=== PATIENT | female | born 1985 | race Caucasian/White ===

== ENCOUNTER 2016-09-20 20:43 | Outpatient (CLI) | payer MEDICAID ==
[~2016-09-20] VITALS: Ht 167.6 cm; Wt 77.2 kg
[2016-09-20] MEDS ORDERED: PREN1TAB79 PO (21:01)
[2016-09-20] MEDS ORDERED: CALC600T5 PO (21:01)
[2016-09-20] MEDS ORDERED: FERR325C PO (21:01)
[2016-09-20 21:02] VITALS: BP 106/64; PULSE 68; RESP 18; Ht 167.6 cm; Wt 77.2 kg
--- NOTE | 2016-09-20 22:40 | RADRPT ---
PROCEDURE: CERVICAL LENGTH ULTRASOUND CLINICAL INDICATION: labor at 23 weeks gestational age. TECHNIQUE: Trans-vaginal imaging of the cervical canal was performed utilizing bacon-scale imaging. Sagittal and transverse images were obtained. Trans-abdominal images were also obtained. The vern ges were reviewed on a PACS workstation. COMPARISON: None. FINDINGS: There is a single live intrauterine . heart rate is 157 beats per minute. Position is breech/variable and placenta is anterior grade 1. There is no placenta previa. The cervix is closed with a length of 5.1 cm. IMPRESSION: 1. Cervical length is 5.1 cm. RPTAT: QQ .Lucho Goodwin MD, MD Date Time Electronically viewed and signed by .Lucho Goodwin MD, on 09/20/2016 22:40 .R/
[2016-09-20 23:31] LABS: ADD SCAN DIFF NO
[2016-09-20 23:32] LABS: BASOPHILS % 0.2 % (0.0-2.0); EOSINOPHILS # 0.3 10^3/ul (0.0-0.5); EOSINOPHILS % 3.3 % (0.0-7.0); HEMATOCRIT 29.4 % (37.0-47.0); HEMOGLOBIN 9.8 g/dl (12.0-16.0); LYMPHOCYTES % 29.4 % (15.0-51.0); MEAN CORPUSCULAR HGB CONC 33.3 g/dl (32.0-37.0); MEAN PLATELET VOLUME 10.9 fl (7.4-10.4); MONOCYTES % 9.6 % (0.0-11.0); NEUTROPHIL # 5.7 10^3/ul (1.6-7.5); NEUTROPHILS % 56.5 % (39.0-77.0); PLATELET COUNT 227 10^3/UL (140-415); RED BLOOD COUNT 3.16 10^6/ul (4.20-5.40); RED CELL DISTRIBUTION WIDTH 14.2 % (11.5-14.5)
[2016-09-20 23:50] LABS: ADD UMIC YES; URINE BILIRUBIN (Dip) NEGATIVE (NEGATIVE); URINE BLOOD (Dip) NEGATIVE (NEGATIVE); URINE COLOR LT. YELLOW (YELLOW); URINE GLUCOSE (Dip) NEGATIVE (NEGATIVE); URINE KETONES (Dip) NEGATIVE (NEGATIVE); URINE LEUKOCYTE ESTERASE (Dip) 1+ (NEGATIVE); URINE NITRITE (Dip) NEGATIVE (NEGATIVE); URINE TOTAL PROTEIN (Dip) NEGATIVE (NEGATIVE); URINE UROBILINOGEN (Dip) 0.2 E.U./dL (0.1-1.0)
[2016-09-21 00:17] LABS: BACTERIA,URINE MANY; SQUAMOUS EPITHELIAL CELL,UR MODERATE; URINE RBCS 0-2 /HPF (0)
--- NOTE | 2016-09-21 00:44 | PN ---
Date/Time of Note Date/Time of Note DATE: 09/21/16 TIME: 00:39 OB Subjective Subjective Subjective 30 yo P2 @ 23 wks presents w pelvic pain/ press OB Objective Objective Objective VS: 106/64, 68, 18, 98.1 Abdomen- gravid, n/t FHT- pos FH [place]- no ctx Sono- cervical length 5.1cm Abdomen: WNL Membranes: Intact Contractions on Admission: None OB Assessment/Plan Other Assessment: 30 yo P2 @ 23 wks w pelvic pressure - reassuring status Other plan: u/a neg, cl- 5.1 cm, not in PTL, no signs of UTI patient reassured d/c home; f/u w ZAHRA Jimenez MD Sep 21, 2016 00:44
--- NOTE | 2016-09-21 02:34 | TRIAGE ---
OB Triage Datetime Report Generated by CPN: 09/21/2016 02:34 Datetime: 09/21/2016 00:38 Stage of : OB Triage Labor Evaluation Frequency: None noted or palpated Monitor Mode: External Resting Tone [place]: Relaxed Comments: Pt reports positive movt Datetime: 09/21/2016 00:36 Stage of : OB Triage Datetime: 09/21/2016 00:26 Stage of : OB Triage Datetime: 09/21/2016 00:00 Stage of : OB Triage Labor Evaluation Frequency: None noted or palpated Monitor Mode: External Resting Tone [place]: Relaxed Comments: Pt reports positive movt Datetime: 09/20/2016 23:00 Stage of : OB Triage Labor Evaluation Frequency: None noted or palpated Monitor Mode: External Resting Tone [place]: Relaxed Comments: Pt reports positive movt Datetime: 09/20/2016 22:00 Stage of : OB Triage Labor Evaluation Frequency: None noted or palpated Monitor Mode: External Resting Tone [place]: Relaxed Comments: Pt reports positive movt Datetime: 09/20/2016 21:53 Stage of : OB Triage Datetime: 09/20/2016 21:06 Labor Evaluation Frequency: None noted or palpated Monitor Mode: External Resting Tone [place]: Relaxed Monitor Mode: External US Variability: Moderate 6-25 bpm Accelerations: 15X15 Comments: Appropriate for gestational age. EFM removed. Datetime: 09/20/2016 20:54 Stage of : OB Triage Temperature Route: Oral Pain Assessment Pain Scale: 0 Pain Presence: None/Denies Pain Type: N/A Pain Assessment Comments: Denies pain at this time. Says can be up to 9/10. Datetime: 09/20/2016 20:53 Stage of : OB Triage Assessment Type: Triage Maternal Assessment Level of Consciousness: Fully Conscious DTR's/Clonus: DTRs 2+; No Clonus Headache: Denies Blurred Vision: No Respiratory Effort: Unlabored; Regular Rhythm; Equal Expansion Breath Sounds, Left: Clear and Equal Breath Sounds, Right: Clear and Equal Nausea/Vomiting: Denies RUQ Epigastric Pain: Denies Lower Extremities Edema: Bilateral Lower Extremities Degree: 1+ (Annotations: Bilateral variscosities) Upper Extremities Edema: None Degree: None Facial Edema: None Fall Risk Assessment History of Falling: (0) No Secondary Diagnosis: (0) No Ambulatory Aid: (0) Bedrest/Nurse Assist IV Therapy: (0) No Gait: (0) Normal/Bedrest/Immobile Mental Status: (0) Oriented to Own Ability Fall Score: 0 Fall Risk Score Definition: No Risk: No action required Datetime: 09/20/2016 20:52 Monitor Mode: External Contraction Comments: [place] applied Heart Rate FHR Baseline Rate: 145 Monitor Mode: External US Comments: EFM applied Datetime: 09/20/2016 20:50 Time of Arrival: 09/20/2016 20:38 EGA: 23.0 Arrived By: Wheelchair Arrived From: Home Chief Complaint: UCs since Fri, vaginal pressure Movement: Present Contractions: Irregular Time Contractions Began: 09/20/2016 14:00 Contractions: [id number] to hours apart Rupture of Membranes: Denies Vaginal Bleeding: None Vaginal Discharge: Present Recent Sexual Intercouse: Yes Abdominal Trauma: Not Applicable Patient Complaints: Contractions; Cramping; Back Pain Time Provider Notified: 09/20/2016 21:53 Provider Notified: Kavon Initial Plan: Monitor uc's
== END 2016-09-21 00:56 | disposition home or self-care (01) ==
LOC: OBT 20:43 → L-D 20:43 → OBT 09-21 00:56
PROVIDERS: ATTEND Obstetrics & Gynecology
DX: O26.892 Other specified pregnancy related conditions, second trimester (principal); R10.2 Pelvic and perineal pain; Z3A.23 23 weeks gestation of pregnancy
CPT/HCPCS: 76817; 81001; 85025; Z7500; 81003; G0463

== ENCOUNTER 2016-10-24 12:51 | Outpatient (CLI) | payer MEDICAID ==
[~2016-10-24] VITALS: Ht 167.6 cm; Wt 78.0 kg
[~2016-10-24 12:51] MED LIST: CALC600T5 PO; FERR325C PO; PREN1TAB79 PO
[2016-10-24 13:08] VITALS: BP 101/61; PULSE 85; RESP 18; Ht 167.6 cm; Wt 78.0 kg
--- NOTE | 2016-10-24 14:30 | RADRPT ---
PROCEDURE: US Lower extremity Venous. CLINICAL INDICATION: Bilateral lower extremity edema , pain TECHNIQUE: Multiple sonographic images of the bilateral lower extremity deep venous system was obt ained utilizing grayscale, color-flow, compressive sonography and doppler imaging with augmentation. The images were reviewed on a PACS workstation. COMPARISON: None. FINDINGS: There is normal compressibility and flow within the bilateral common femoral, femoral , posterior ti bial and popliteal veins. RPTAT: AA IMPRESSION: No sonographic evidence for deep venous thrombosis. .Mele Jensne MD, MD Date Time Electronically viewed and signed by .Mele Jensen MD, on 10/24/2016 14:29 .S/
--- NOTE | 2016-10-24 15:51 | QN ---
Documentation Comment 30 y/o G 3 P2 here for left leg swelling at 37.6 weeks NST R Doppler study of venous flow of both lower extremities are normal will follow outpatient WILSON ARMANDO MD October 24, 2016 15:51
== END 2016-10-24 16:10 | disposition home or self-care (01) ==
LOC: OBT 12:51 → L-D 12:52 → OBT 16:10
PROVIDERS: ATTEND Obstetrics & Gynecology
DX: O26.893 Other specified pregnancy related conditions, third trimester (principal); M79.89 Other specified soft tissue disorders; Z3A.37 37 weeks gestation of pregnancy
CPT/HCPCS: 93970; Z7500; G0463

== ENCOUNTER 2016-10-30 13:24 | Outpatient (CLI) | payer MEDICAID ==
[~2016-10-30] VITALS: Ht 167.6 cm; Wt 78.6 kg
[2016-10-30 13:29] VITALS: Ht 167.6 cm; Wt 78.6 kg
[2016-10-30 13:30] VITALS: BP 112/66; PULSE 71
[2016-10-30] MEDS ORDERED: LACTATED RINGER'S 1,000 ML IV ONE (14:00)
[2016-10-30] MEDS ORDERED: TERBUTALINE 1 MG/ML INJ SC ONE ×2 (14:00→16:30)
[2016-10-30 14:23] LABS: ADD SCAN DIFF NO
[2016-10-30 14:24] LABS: BASOPHIL # 0.1 10^3/ul (0.0-0.1); BASOPHILS % 0.5 % (0.0-2.0); EOSINOPHILS # 0.2 10^3/ul (0.0-0.5); EOSINOPHILS % 2.3 % (0.0-7.0); HEMATOCRIT 32.8 % (37.0-47.0); HEMOGLOBIN 11.3 g/dl (12.0-16.0); LYMPHOCYTES # 2.2 10^3/ul (0.8-2.9); LYMPHOCYTES % 20.7 % (15.0-51.0); MEAN CORPUSCULAR HEMOGLOBIN 32.4 pg (29.0-33.0); MEAN CORPUSCULAR HGB CONC 34.5 g/dl (32.0-37.0); MEAN PLATELET VOLUME 11.1 fl (7.4-10.4); MONOCYTE # 0.7 10^3/ul (0.3-0.9); MONOCYTES % 6.4 % (0.0-11.0); NEUTROPHIL # 7.2 10^3/ul (1.6-7.5); NEUTROPHILS % 67.9 % (39.0-77.0); PLATELET COUNT 257 10^3/UL (140-415); RED BLOOD COUNT 3.49 10^6/ul (4.20-5.40); RED CELL DISTRIBUTION WIDTH 13.3 % (11.5-14.5); WHITE BLOOD COUNT 10.5 10^3/ul (4.8-10.8)
--- NOTE | 2016-10-30 14:42 | RADRPT ---
PROCEDURE: Limited obstetric ultrasound CLINICAL INDICATION: Pain , labor TECHNIQUE: Multiple transverse and longitudinal grayscale images of the pelvis were obtained miller sabdominally and transvaginally.. COMPARISON: same day FINDINGS: The cervix is closed with a length of 5.4 cm. There is a single viable intrauterine gestation. Cardiac activity is present with 158 beats per min sun. There is a transverse left/variable presentation. The placenta is anterior. There is no evidence for an abruption or placenta previa. There is a normal amount of amniotic fluid with an NAHEED = 15.9 cm. RPTAT: AA IMPRESSION: Cervix length measures 5.4 cm. .Mele Jensen MD, Date Time Electronically viewed and signed by .Mele Jensen MD, MD on 10/30/2016 14:42 .S/
[2016-10-30] MEDS ORDERED: LACTATED RINGER'S 1,000 ML IV SCH (15:00)
[2016-10-30 15:21] LABS: ADD UMIC YES; URINE BILIRUBIN (Dip) NEGATIVE (NEGATIVE); URINE BLOOD (Dip) TRACE (NEGATIVE); URINE COLOR LT. YELLOW (YELLOW); URINE GLUCOSE (Dip) NEGATIVE (NEGATIVE); URINE KETONES (Dip) NEGATIVE (NEGATIVE); URINE LEUKOCYTE ESTERASE (Dip) 1+ (NEGATIVE); URINE NITRITE (Dip) NEGATIVE (NEGATIVE); URINE TOTAL PROTEIN (Dip) NEGATIVE (NEGATIVE); URINE UROBILINOGEN (Dip) 0.2 E.U./dL (0.1-1.0)
[2016-10-30 15:49] LABS: BACTERIA,URINE FEW; SQUAMOUS EPITHELIAL CELL,UR FEW; URINE RBCS 0-2 /HPF ([, 0])
[2016-10-30] MEDS ORDERED: BETAMET NA PHOS/AC(6 MG/ML) 5ML INJ IM ONE (16:30)
[2016-10-30] MEDS ORDERED: NIFEdipine 10 MG CAP PO ONE (18:00)
--- NOTE | 2016-10-30 18:18 | QN ---
Documentation Comment 24 y/o female P2 at 29 weeks C/O onset of U/Cs and vaginal spotting X 1 day Patient has Hx of delivery at 35 weeks PMH , PSH negative On EFM U/C seen Q 4-5 min Cx: closed Cervical length:5.4 cm After IV hydration and SQ terbutaline X 2 patient cosseted U/Cs Sterois given patient was started on PO Nifedipine will place on bed and pelvic rest continue Nifedipine at [facility] refer back next day for second dose of steroids WILSON ARMANDO MD October 30, 2016 18:17
[2016-10-30] MEDS ORDERED: NIFE10CA19 PO (18:38)
--- NOTE | 2016-10-30 18:49 | TRIAGE ---
OB Triage Datetime Report Generated by CPN: 10/30/2016 18:49 Datetime: 10/30/2016 17:32 Vaginal Exam Dilatation (cms): 0.0 Datetime: 10/30/2016 17:30 Stage of : OB Triage Maternal Assessment Level of Consciousness: Fully Conscious Headache: Denies Nausea/Vomiting: Denies RUQ Epigastric Pain: Denies Labor Evaluation Frequency: 0 Monitor Mode: External Resting Tone [place]: Relaxed Monitor Mode: External US FHR Baseline Changes: No Baseline Change Variability: Moderate 6-25 bpm Accelerations: 15X15 Decelerations: None Category: Category I Pain Assessment Pain Scale: PT ASLEEP Pain Presence: Intermittent Pain Type: Cramping; Ache Pain Location: Abdomen; Back Pain Goal: 2 Pain Relief Measures: Comfort Measures Membrane Status: Intact Datetime: 10/30/2016 16:30 Stage of : OB Triage Maternal Assessment Level of Consciousness: Fully Conscious Headache: Denies Nausea/Vomiting: Denies RUQ Epigastric Pain: Denies Labor Evaluation Frequency: 30 min Monitor Mode: External Duration (sec)2399: 50 Quality: Moderate Resting Tone [place]: Relaxed Heart Rate FHR Baseline Rate: 140 Monitor Mode: External US FHR Baseline Changes: No Baseline Change Variability: Moderate 6-25 bpm Accelerations: 15X15 Decelerations: None Category: Category I Pain Assessment Pain Scale: 5 Pain Presence: Intermittent Pain Type: Cramping; Ache Pain Location: Abdomen; Back Pain Goal: 2 Pain Relief Measures: Comfort Measures Datetime: 10/30/2016 15:30 Stage of : OB Triage Maternal Assessment Level of Consciousness: Fully Conscious Headache: Denies Nausea/Vomiting: Denies RUQ Epigastric Pain: Denies Labor Evaluation Frequency: 30 min Monitor Mode: External Duration (sec)2399: 50 Quality: Moderate Resting Tone [place]: Relaxed Heart Rate FHR Baseline Rate: 140 Monitor Mode: External US FHR Baseline Changes: No Baseline Change Variability: Moderate 6-25 bpm Accelerations: 15X15 Decelerations: None Category: Category I Pain Assessment Pain Scale: 5 Pain Presence: Intermittent Pain Type: Cramping; Ache Pain Location: Abdomen; Back Pain Goal: 2 Pain Relief Measures: Comfort Measures Datetime: 10/30/2016 14:30 Stage of : OB Triage Maternal Assessment Level of Consciousness: Fully Conscious Headache: Denies Nausea/Vomiting: Denies RUQ Epigastric Pain: Denies Labor Evaluation Frequency: 2-6 Monitor Mode: External Duration (sec)2399: 50 Quality: Moderate Resting Tone [place]: Relaxed Heart Rate FHR Baseline Rate: 140 Monitor Mode: External US FHR Baseline Changes: No Baseline Change Variability: Moderate 6-25 bpm Accelerations: 15X15 Decelerations: None Category: Category I Pain Assessment Pain Scale: 6 Pain Presence: Intermittent Pain Type: Cramping; Ache Pain Location: Abdomen; Back Pain Goal: 2 Pain Relief Measures: Comfort Measures Datetime: 10/30/2016 13:36 Stage of : OB Triage Assessment Type: Triage Maternal Assessment Level of Consciousness: Fully Conscious DTR's/Clonus: DTRs 2+; No Clonus Headache: Denies Blurred Vision: No Respiratory Effort: Unlabored; Regular Rhythm; Equal Expansion Breath Sounds, Left: Clear and Equal Breath Sounds, Right: Clear and Equal Nausea/Vomiting: Denies RUQ Epigastric Pain: Denies Lower Extremities Edema: Left Lower Extremity Degree: 1+ Upper Extremities Edema: None Facial Edema: None Temperature Route: Oral Fall Risk Assessment History of Falling: (0) No Secondary Diagnosis: (0) No Ambulatory Aid: (0) Bedrest/Nurse Assist IV Therapy: (0) No Gait: (0) Normal/Bedrest/Immobile Mental Status: (0) Oriented to Own Ability Fall Score: 0 Fall Risk Score Definition: No Risk: No action required Labor Evaluation Frequency: X2 Monitor Mode: External Duration (sec)2399: 50 Resting Tone [place]: Relaxed Heart Rate FHR Baseline Rate: 135 Monitor Mode: External US FHR Baseline Changes: No Baseline Change Variability: Moderate 6-25 bpm Accelerations: 15X15 Decelerations: None Category: Category I Pain Assessment Pain Scale: 7 Pain Presence: Intermittent Pain Type: Cramping; Ache Pain Location: Abdomen; Back Pain Goal: 2 Pain Relief Measures: Comfort Measures Datetime: 10/24/2016 16:36 Time of Arrival: 10/30/2016 13:25 EGA: 28.5 Arrived By: Ambulatory Arrived From: Dr. Summers Chief Complaint: UC'S VAG DISCHARGE [place] C/O DECREASED FM X 2 DAYS; PAIN 12/30 Movement: Present Contractions: Regular Contractions: 7 Rupture of Membranes: Unsure Vaginal Discharge: Present Recent Sexual Intercouse: Denies Abdominal Trauma: Not Applicable Patient Complaints: Cramping (Annotations: Data stored by CPN on behalf of user) Time Provider Notified: 10/30/2016 13:45 Provider Notified: Emily (Annotations: Data stored by CPN on behalf of user) Initial Plan: NST MONITOR UC'S CALL MD; NO BLEEDING PRESENTLY; ORDERS DR EMILY; IV HYDRATION/S/Q TERB X1; UA,CBC,CL, VE NAHEED (Annotations: Data stored by [facility] on behalf of user) Datetime: 10/24/2016 15:52 Stage of : OB Triage Datetime: 10/24/2016 15:23 Labor Evaluation Frequency: 0 Monitor Mode: External Resting Tone [place]: Relaxed Heart Rate FHR Baseline Rate: 145 Monitor Mode: External US Variability: Moderate 6-25 bpm Decelerations: None Category: Category I Pain Assessment Pain Scale: 0 Pain Presence: None/Denies Pain Type: N/A Pain Goal: 3 Pain Relief Measures: Comfort Measures Datetime: 10/24/2016 15:12 Stage of : OB Triage Datetime: 10/24/2016 14:45 Stage of : OB Triage Datetime: 10/24/2016 14:07 Labor Evaluation Frequency: 0 Monitor Mode: External Resting Tone [place]: Relaxed Heart Rate FHR Baseline Rate: 145 Monitor Mode: External US Variability: Moderate 6-25 bpm Decelerations: None Category: Category I Pain Assessment Pain Scale: 0 Pain Presence: None/Denies Pain Location: Abdomen Pain Goal: 3 Datetime: 10/24/2016 13:17 Assessment Type: Admission Assessment Maternal Assessment Level of Consciousness: Fully Conscious DTR's/Clonus: DTRs 2+; No Clonus Headache: Denies Blurred Vision: No Respiratory Effort: Unlabored; Regular Rhythm; Equal Expansion Breath Sounds, Left: Clear and Equal Breath Sounds, Right: Clear and Equal Nausea/Vomiting: Denies RUQ Epigastric Pain: Denies Lower Extremities Edema: Left Lower Extremity Degree: 1+ Upper Extremities Edema: None Degree: None Facial Edema: None Fall Risk Assessment History of Falling: (0) No Secondary Diagnosis: (0) No Ambulatory Aid: (0) Bedrest/Nurse Assist IV Therapy: (0) No Gait: (0) Normal/Bedrest/Immobile Mental Status: (0) Oriented to Own Ability Fall Score: 0 Fall Risk Score Definition: No Risk: No action required Datetime: 10/24/2016 13:16 Time of Arrival: 10/24/2016 12:45 EGA: 27.6 Arrived By: Ambulatory Arrived From: Dr. Summers Chief Complaint: r/o dvt Movement: Present Contractions: Denies/Absent Rupture of Membranes: Denies Vaginal Bleeding: None Vaginal Discharge: Denies Recent Sexual Intercouse: Denies Abdominal Trauma: Not Applicable Patient Complaints: Other Time Provider Notified: 10/24/2016 15:12 Provider Notified: EMILY Initial Plan: nst, doppler study of venous flow Datetime: 09/21/2016 00:38 Pain Assessment Pain Scale: 0 Pain Presence: None/Denies Pain Type: N/A Pain Assessment Comments: Denies pain at this time Datetime: 09/20/2016 20:53 Fall Score: 0 Fall Risk Score Definition: No Risk: No action required Datetime: 09/20/2016 20:50 EGA: 23.0
--- NOTE | 2016-10-30 19:13 | TRIAGE ---
OB Triage Datetime Report Generated by CPN: 10/30/2016 19:13 Datetime: 10/30/2016 19:00 Time of Arrival: 10/30/2016 13:17 EGA: 28.5 Arrived By: Ambulatory Arrived From: Office Chief Complaint: PT CAME WITH REFERRAL TO R/O PTL Movement: Present Contractions: Regular Contractions: 7 Vaginal Bleeding: None Vaginal Discharge: Denies Recent Sexual Intercouse: Denies Abdominal Trauma: Not Applicable Patient Complaints: Contractions; Cramping Initial Plan: NST/MONITOR UC'S/ NAHEED/VE/CL;UA AND URINE CULTURE CBC; IV HYDRATION
== END 2016-10-30 19:00 | disposition home or self-care (01) ==
LOC: OBT 13:24 → L-D 13:25 → OBT 19:00
PROVIDERS: ATTEND Obstetrics & Gynecology
DX: O62.9 Abnormality of forces of labor, unspecified (principal); O26.853 Spotting complicating pregnancy, third trimester; O60.03 Preterm labor without delivery, third trimester; Z3A.29 29 weeks gestation of pregnancy
CPT/HCPCS: 76815; 76817; 81001; 85025; 87086; J0702; J3105; J7120; Z7610; 81003

== ENCOUNTER 2016-10-31 16:02 | Outpatient (CLI) | payer MEDICAID ==
[~2016-10-31] VITALS: Ht 167.6 cm; Wt 79.7 kg
[~2016-10-31 16:02] MED LIST changes: +NIFE10CA19 PO
[2016-10-31 16:19] VITALS: Ht 167.6 cm; Wt 79.7 kg
[2016-10-31 16:20] VITALS: BP 105/65; PULSE 74
[2016-10-31] MEDS ORDERED: BETAMET NA PHOS/AC(6 MG/ML) 5ML INJ IM ONE (16:30)
--- NOTE | 2016-10-31 17:14 | QN ---
Documentation Comment here for receiving 2nd dose of steroids: given Om EFM No U/C seen P: F/U as outpatient WILSON RAMANDO MD October 31, 2016 17:14
== END 2016-10-31 17:20 | disposition home or self-care (01) ==
LOC: OBT 16:02 → L-D 16:04 → OBT 17:20
PROVIDERS: ATTEND Obstetrics & Gynecology
DX: Z34.83 Encounter for supervision of other normal pregnancy, third trimester (principal)
CPT/HCPCS: J0702

== ENCOUNTER 2016-12-11 00:26 | Outpatient (CLI) | payer MEDICAID ==
[~2016-12-11] VITALS: Ht 167.6 cm; Wt 81.9 kg
[2016-12-11 01:00] VITALS: BP 107/59; PULSE 75; RESP 18
[2016-12-11 01:45] LABS: ADD UMIC YES; UR BILIRUBIN (Dip) NEGATIVE (NEGATIVE); UR BLOOD (Dip) 1+ (NEGATIVE); UR CLARITY CLEAR (CLEAR); UR COLOR LT. YELLOW (YELLOW); UR GLUCOSE (Dip) NEGATIVE (NEGATIVE); UR KETONES (Dip) NEGATIVE (NEGATIVE); UR LEUKOCYTE ESTERASE (Dip) 1+ (NEGATIVE); UR NITRITE (Dip) NEGATIVE (NEGATIVE); UR TOTAL PROTEIN (Dip) NEGATIVE (NEGATIVE); UR UROBILINOGEN (Dip) 0.2 E.U./dL (0.1-1.0)
[2016-12-11 02:09] LABS: ADD SCAN DIFF NO
[2016-12-11 02:12] LABS: UR BACTERIA OCCASIONAL /HPF (NONE SEEN); UR SQUAMOUS EPITHELIAL CELL OCCASIONAL /HPF (FEW)
[2016-12-11 02:12] LABS: ABNORMAL IP MESSAGE 1; BASOPHIL # 0.1 10^3/ul (0.0-0.1); BASOPHILS % 0.5 % (0.0-2.0); EOSINOPHILS # 0.2 10^3/ul (0.0-0.5); EOSINOPHILS % 1.8 % (0.0-7.0); HEMATOCRIT 30.2 % (37.0-47.0); HEMOGLOBIN 10.4 g/dl (12.0-16.0); LYMPHOCYTES % 25.4 % (15.0-51.0); MEAN CORPUSCULAR HEMOGLOBIN 32.1 pg (29.0-33.0); MEAN CORPUSCULAR HGB CONC 34.4 g/dl (32.0-37.0); MEAN CORPUSCULAR VOLUME 93.2 fl (82.0-101.0); MEAN PLATELET VOLUME 11.1 fl (7.4-10.4); MONOCYTE # 1.1 10^3/ul (0.3-0.9); MONOCYTES % 9.1 % (0.0-11.0); NEUTROPHIL # 6.8 10^3/ul (1.6-7.5); NEUTROPHILS % 57.1 % (39.0-77.0); PLATELET COUNT 213 10^3/UL (140-415); RED BLOOD COUNT 3.24 10^6/ul (4.20-5.40); WHITE BLOOD COUNT 11.9 10^3/ul (4.8-10.8)
--- NOTE | 2016-12-11 02:45 | RADRPT ---
PROCEDURE: Biophysical profile. CLINICAL INDICATION: Pelvic pain. TECHNIQUE: Multiple sonographic images of the pelvis were obtained with transabdominal technique. COMPARISON: 10/30/2016. FINDINGS: There is a single living intrauterine gestation with the fetus in a breech position. The placenta i s anterior in location, grade II. heart tones of 139 beats per minute are identified. There i s normal amniotic fluid volume with an NAHEED of 18.0 cm. breathing movements = 2 Gross body movements = 2 tone = 2 Qualitative AFV = 2 IMPRESSION: Biophysical profile 8 out of 8. .Óscar Larsen MD, Date Time Electronically viewed and signed by .Óscar Larsen MD, on 12/11/2016 02:45 .T/
--- NOTE | 2016-12-11 02:48 | RADRPT ---
PROCEDURE: Obstetrical ultrasound, limited. CLINICAL INDICATION: Pelvic pain. TECHNIQUE: Multiple sonographic images of the pelvis were obtained using transabdominal technique . Images were obtained with bacon scale and color Doppler. The images were reviewed on a PACS works tation. COMPARISON: 10/30/2016. FINDINGS: There is a single living intrauterine gestation with the fetus in a breech presentation. hear t tones of 131 beats per minute are identified. The placenta is anterior in location, grade 2. The re is no evidence of placenta previa or abruption. Measurements were made in order to determine age. The results are as follows: BPD =8.12 cm HC =29.58 cm AC =31.26 cm FL =6.86 cm. Estimated gestational age of approximately 34 weeks and 0 days. The estimated date of delivery is 01/22/2017. The EFW = 2485 +/- 373 grams. Estimated weight percentage equals 44.1%. IMPRESSION: Single viable intrauterine gestation of approximately 34 weeks and 0 days, with an ultrasound DRE of 01/22/2017. .Óscar Larsen MD, MD Date Time Electronically viewed and signed by .Óscar Larsen MD, MD on 12/11/2016 02:47 .T/
--- NOTE | 2016-12-11 05:34 | TRIAGE ---
OB Triage Datetime Report Generated by CPN: 12/11/2016 05:34 Datetime: 12/11/2016 02:40 Monitor Mode: External Quality: Mild Pattern: Normal: <= 5 Contractions in 10 Minutes Resting Tone [place]: Relaxed Heart Rate FHR Baseline Rate: 130 Monitor Mode: External US FHR Baseline Changes: No Baseline Change Variability: Moderate 6-25 bpm Accelerations: 15X15 Decelerations: None Category: Category I Datetime: 12/11/2016 01:48 Vaginal Exam Dilatation (cms): 0.0 Effacement (%): 0 Station: -3 Exam By: ant Vaginal Bleeding: None Pool: Negative Nitrazine: Negative Cervix, Consistency: Moderate Cervix, Position: Posterior Datetime: 12/11/2016 01:05 Stage of : OB Triage Labor Evaluation Frequency: q15 Monitor Mode: External Quality: Mild Pattern: Normal: <= 5 Contractions in 10 Minutes Resting Tone [place]: Relaxed Heart Rate FHR Baseline Rate: 135 Monitor Mode: External US FHR Baseline Changes: No Baseline Change Variability: Moderate 6-25 bpm Accelerations: 15X15 Decelerations: None Category: Category I Datetime: 12/11/2016 00:44 Stage of : OB Triage Maternal Assessment Level of Consciousness: Fully Conscious Headache: Denies Blurred Vision: Yes Respiratory Effort: Unlabored Nausea/Vomiting: Denies RUQ Epigastric Pain: Denies Facial Edema: None Labor Evaluation Frequency: placed Monitor Mode: External Resting Tone [place]: Relaxed Heart Rate FHR Baseline Rate: 135 Monitor Mode: External US Pain Assessment Pain Scale: 4 Pain Presence: Intermittent Pain Type: Cramping Pain Location: Abdomen; Perineum Datetime: 12/11/2016 00:30 Time of Arrival: 12/11/2016 00:18 EGA: 34.5 Arrived By: Wheelchair Arrived From: Home Chief Complaint: w/ hx PTL and PTD w/ c/o pelvic pressure, thin bloody discharge, and DFM sin ce 2200 Movement: Decreased Contractions: Irregular Time Contractions Began: 12/10/2016 22:00 Rupture of Membranes: Unsure Vaginal Bleeding: Scant Vaginal Discharge: Present Recent Sexual Intercouse: Denies Abdominal Trauma: Not Applicable Patient Complaints: Cramping Time Provider Notified: 12/11/2016 01:05 Provider Notified: Dr Rene Initial Plan: BPP,EFW,UA,CBC,ROM Datetime: 10/31/2016 17:08 Stage of : OB Triage Datetime: 10/31/2016 16:20 Stage of : OB Triage Datetime: 10/31/2016 16:15 Stage of : OB Triage Assessment Type: Triage Maternal Assessment Level of Consciousness: Fully Conscious DTR's/Clonus: DTRs 2+; No Clonus Headache: Denies Blurred Vision: No Respiratory Effort: Unlabored; Regular Rhythm; Equal Expansion Breath Sounds, Left: Clear and Equal Breath Sounds, Right: Clear and Equal Nausea/Vomiting: Denies RUQ Epigastric Pain: Denies Facial Edema: None Temperature Route: Axillary Fall Risk Assessment History of Falling: (0) No Secondary Diagnosis: (0) No Ambulatory Aid: (0) Bedrest/Nurse Assist IV Therapy: (0) No Gait: (0) Normal/Bedrest/Immobile Mental Status: (0) Oriented to Own Ability Fall Score: 0 Fall Risk Score Definition: No Risk: No action required Labor Evaluation Frequency: 0 Monitor Mode: External Resting Tone [place]: Relaxed Monitor Mode: External US Variability: Moderate 6-25 bpm Accelerations: 10X10 Decelerations: None Category: Category I Pain Assessment Pain Scale: 0 Pain Presence: None/Denies Pain Type: N/A Pain Goal: 3 Pain Relief Measures: Comfort Measures Datetime: 10/31/2016 16:13 Time of Arrival: 10/31/2016 16:05 EGA: 28.6 Arrived By: Ambulatory Arrived From: Home Chief Complaint: FOLLOW UP BETAMETHASONE, DENIES BLEEDING, LEAKING, RARE UC'S Movement: Present Contractions: Regular Rupture of Membranes: Denies Vaginal Bleeding: None Vaginal Discharge: Denies Recent Sexual Intercouse: Denies Abdominal Trauma: Not Applicable Patient Complaints: None Time Provider Notified: 10/31/2016 16:20 Provider Notified: EMILY Initial Plan: MONITOR, BETAMETHASONE #2 Datetime: 10/30/2016 19:00 EGA: 28.5 Datetime: 10/30/2016 13:36 Fall Score: 0 Fall Risk Score Definition: No Risk: No action required Datetime: 10/24/2016 16:36 EGA: 28.5 Datetime: 10/24/2016 13:17 Fall Score: 0 Fall Risk Score Definition: No Risk: No action required Datetime: 10/24/2016 13:16 EGA: 27.6 Datetime: 09/20/2016 20:53 Fall Score: 0 Fall Risk Score Definition: No Risk: No action required Datetime: 09/20/2016 20:50 EGA: 23.0
--- NOTE | 2016-12-11 09:39 | PN ---
Triage Information Date/Time 12/11/16 0200 Weeks of Gestation 34w5d : 3 Para: 2 Diabetes: none Hypertention: none Additional information mucous bloody discharge with pressure sensation decrease movement has been on procardia for PTL , had Hx of PTB ran out of medication fir one day Objective Vital Signs Date Time Temp Pulse Resp B/P Pulse Ox O2 Delivery O2 Flow Rate FiO2 12/11/16 01:00 98.1 75 18 107/59 Room Air Heart Rate: 140's Heart Rate Comments EFM reactive Contractions: >10 Minutes Apart Exam VE closed long -3 Results/Medications Result Diagram: 12/11/16 0128 Results 24 hrs Laboratory Tests Test 12/11/16 00:30 12/11/16 01:28 12/11/16 01:50 Urine Color LT. YELLOW Urine Clarity CLEAR Urine pH Urine Specific [place] Urine Ketones NEGATIVE Urine Nitrite NEGATIVE Urine Bilirubin NEGATIVE Urine Urobilinogen 0.2 E.U./dL Urine Leukocyte Esterase 1+ H Urine Microscopic RBC 5-10 Urine Microscopic WBC 5-10 Urine Squamous Epithelial Cells OCCASIONAL Urine Bacteria OCCASIONAL Urine Hemoglobin 1+ H Urine Glucose NEGATIVE Urine Total Protein NEGATIVE White Blood Count 11.9 H Red Blood Count 3.24 L Hemoglobin 10.4 L Hematocrit 30.2 L Mean Corpuscular Volume 93.2 Mean Corpuscular Hemoglobin 32.1 Mean Corpuscular Hemoglobin Concent 34.4 Red Cell Distribution Width 13.0 Platelet Count 213 Mean Platelet Volume 11.1 H Neutrophils % 57.1 Lymphocytes % 25.4 Monocytes % 9.1 Eosinophils % 1.8 Basophils % 0.5 Nucleated Red Blood Cells % 0.0 Neutrophils # 6.8 Lymphocytes # 3.0 H Monocytes # 1.1 H Eosinophils # 0.2 Basophils # 0.1 Nucleated Red Blood Cells # 0.0 Membranes Rupture NEGATIVE Medications procardia 20mg q 6hr # 50 Imaging Results BPP 8/8 NAHEED 18 breech presentation Assessment/Plan IUP 34w5d r/o PTL Plan discharge home with procardia RTH prn with routine labor instructions PRASANTH EDUARDO MD Dec 11, 2016 09:36
== END 2016-12-11 03:43 | disposition home or self-care (01) ==
LOC: L-D 00:26 → OBT 00:26
PROVIDERS: ATTEND Obstetrics & Gynecology
DX: O36.8130 Decreased fetal movements, third trimester, not applicable or unspecified (principal); Z3A.34 34 weeks gestation of pregnancy
CPT/HCPCS: 76815; 76818; 81001; 84112; 85025; Z7500; G0463

== ENCOUNTER 2017-01-17 08:30 | Inpatient (IN) | payer MEDICAID ==
[~2017-01-17] VITALS: Ht 167.6 cm; Wt 83.6 kg
[2017-01-17] MEDS ORDERED: LIDOCAINE 1% (MPF) 30 ML INJ INJ PRN (09:30)
[2017-01-17] MEDS ORDERED: METHYLERGONOVINE 0.2 MG INJ IM PRN (09:30)
[2017-01-17] MEDS ORDERED: OXYTOCIN 30 UNITS/LR 500 ML IV SCH ×2 (09:30)
[2017-01-17] MEDS ORDERED: IBUPROFEN 600 MG TAB PO PRN (09:30)
[2017-01-17] MEDS ORDERED: OXYTOCIN 30 UNITS/LR 500 ML IV PRN (09:30)
[2017-01-17] MEDS ORDERED: AMPICILLIN 2 GM/NS (PMX) 100 ML IV ONE (09:30)
[2017-01-17] MEDS ORDERED: MISOPROSTOL 200 MCG TAB PR PRN (09:30)
[2017-01-17] MEDS ORDERED: CARBOPROST 250 MCG INJ IM PRN (09:30)
[2017-01-17] MEDS: LACTATED RINGER'S 1,000 ML IV SCH ×2 (10:46→19:32)
[2017-01-17 10:48] LABS: BASOPHILS % 0.3 % (0.0-2.0); EOSINOPHILS # 0.2 10^3/ul (0.0-0.5); HEMATOCRIT 32.6 % (37.0-47.0); HEMOGLOBIN 11.4 g/dl (12.0-16.0); LYMPHOCYTES # 2.1 10^3/ul (0.8-2.9); LYMPHOCYTES % 23.4 % (15.0-51.0); MEAN CORPUSCULAR HEMOGLOBIN 32.6 pg (29.0-33.0); MEAN CORPUSCULAR VOLUME 93.1 fl (82.0-101.0); MEAN PLATELET VOLUME 11.9 fl (7.4-10.4); MONOCYTE # 0.9 10^3/ul (0.3-0.9); MONOCYTES % 9.7 % (0.0-11.0); NEUTROPHIL # 5.5 10^3/ul (1.6-7.5); NEUTROPHILS % 61.5 % (39.0-77.0); PLATELET COUNT 220 10^3/UL (140-415); RED CELL DISTRIBUTION WIDTH 13.7 % (11.5-14.5); WHITE BLOOD COUNT 8.9 10^3/ul (4.8-10.8)
[2017-01-17 10:52] VITALS: BP 115/71; PULSE 68; RESP 18; Ht 167.6 cm; Wt 83.6 kg
[2017-01-17] MEDS ORDERED: DINOPROSTONE 10 MG VAG SUPP VAG ONE (11:00)
--- NOTE | 2017-01-17 11:07 | RADRPT ---
PROCEDURE: US OB. CLINICAL INDICATION: presentation , pain TECHNIQUE: Transabdominal views of the pelvis are available for review. COMPARISON: 12/11/2016 FINDINGS: There is a single intrauterine gestation in a vertex position. The heart rate is noted at 143 bpm. The placenta is anterior. RPTAT: AA IMPRESSION: presentation is vertex. .Mele Jensen MD, MD Date Time Electronically viewed and signed by .Mele Jensen MD, on 01/17/2017 11:06 .S/
[2017-01-17 11:09] LABS: INR 0.93; PROTIME 12.5 Sec (12.2-14.2)
[2017-01-17 11:10] LABS: PARTIAL THROMBOPLASTIN TIME 28.9 Sec (25.0-35.0)
[2017-01-17] MEDS ORDERED: LACTATED RINGER'S 1,000 ML IV PRN (12:00)
[2017-01-17] MEDS: AMPICILLIN 1 GM/NS (PMX) 50 ML IV SCH ×2 (17:02→22:27)
--- NOTE | 2017-01-17 17:57 | HP ---
Date/Time of Note Date/Time of Note DATE: 01/17/17 TIME: 17:54 OB - History Hx of Present Free Text/Dictation Admitted for elective induction of labor at term Last Menstrual Period: Apr 12, 2016 Estimated Due Date: Jan 15, 2017 : 3 Para: 2 Care: Good Care Ultrasounds: Normal mid trimester US Obstetrical Complications: None Medical Complications: None Past Family/Social History * Past Medical, Surgical, Family and Obstetric Histories reviewed from chart. Blood Type: AB+ Rubella: unknown RPR/VDRL: Negative GBS Status: Positive HBsAG: Negative OB Admission Exam Vital Signs Vital Signs Vital Signs Date Time Temp Pulse Resp B/P Pulse Ox O2 Delivery O2 Flow Rate FiO2 01/17/17 10:52 97.8 68 18 115/71 98 Room Air Physical Exam HEENT: WNL Heart: Rhythm Normal Lungs: Clear, Equal Abdomen: WNL Extremities: Normal Reflexes: Normal Cervical Dilatation: None Effacement: 0% Station: -3 Membranes: Intact Heart Rate: 140's Accelerations: Accelerations Present Decelerations: No Decelerations Varibility: Marked Contractions on Admission: None Last 72 hours Lab Results CBC & BMP 01/17/17 10:11 OB Assessment/Plan Reason for admission: induction of labor Other Assessment: Term gestation Admitted for elective induction of the labor Induction Method: per Misoprostol Protocol WILSON ARMANDO MD Jan 17, 2017 17:57
[2017-01-18] MEDS ORDERED: MINERAL OIL LIGHT 10 ML VIAL TOP PRN (00:30)
[2017-01-18] MEDS: AMPICILLIN 1 GM/NS (PMX) 50 ML IV SCH ×6 (01:30→17:49)
[2017-01-18] MEDS: LACTATED RINGER'S 1,000 ML IV SCH ×3 (04:49→17:53)
--- NOTE | 2017-01-18 17:16 | PN ---
Date/Time of Note Date/Time of Note DATE: 01/18/17 TIME: 17:15 OB Subjective Subjective Subjective Has pain during contractions OB Objective Objective Objective Vital signs stable General physical exam is unchanged heart tones are reactive Cervix is 60% effaced 4- 5 cm open -3 station Artificial rupture of membranes occurred amniotic fluid appeared to be clear OB Assessment/Plan Reason for admission: induction of labor Other Assessment: Term gestation Other plan: Will augment labor. Pitocin protocol WILSON ARMANDO MD Jan 18, 2017 17:16
[2017-01-18] MEDS ORDERED: OXYTOCIN 30 UNITS/LR 500 ML IV SCH (17:30)
[2017-01-18] MEDS: BUTORPHANOL 2 MG INJ IV PRN ×2 (17:42→18:43)
[2017-01-18] MEDS ORDERED: CEFAZOLIN 2 GM/50 ML (PMX) 50 ML IVPB SCH (18:30)
[2017-01-18] MEDS ORDERED: CEFAZOLIN 2 GM/50 ML (PMX) 50 ML IVPB ONE (18:32)
--- NOTE | 2017-01-18 18:52 | LDN ---
Date/Time of Note Date/Time of Note DATE: 01/18/17 TIME: 18:48 Delivery Summary of a viable over intact perineum Weeks of Gestation 40+ Placenta Delivered: Spontaneously, Intact & Complete (patient had retained placenta because of cord rupture, however deliver the placenta spontaneusly) Meconium: none Episiotomy: No Perineal laceration: 0 Anesthesia type: None Estimated blood loss: 400 Sponge & Needle done & correct: Yes All needle counts correct: Yes Any foreign bodies felt in the: No Problems: Delivery Information Sex Sex: male Apgars 1 Minute: 9 5 Minute: 9 Suctioning Nose & mouth suctioned at kelli: Yes Delee suction performed: No Umbilical Cord Umbilical cord with: 3 Vessels Cord presentations: no nuchal cord Cord Blood was obtained: Yes Mother & Baby Disposition Disposition Mom & Baby to Maternity; Good: Yes (mother and baby were recovered in good condition ) Mom transferred to: Other (maternity ) Baby to NICU: No WILSON ARMANDO MD Jan 18, 2017 18:52
[2017-01-18 21:18] VITALS: BP 123/75; PULSE 56; RESP 20
[2017-01-18] MEDS ORDERED: WITCH HAZEL/GLYCERIN PAD PR PRN (21:30)
[2017-01-18] MEDS ORDERED: DIBUCAINE 1% 30 GM OINT PR PRN (21:30)
[2017-01-18] MEDS ORDERED: ZOLPIDEM 5 MG TAB PO PRN (21:30)
[2017-01-18] MEDS ORDERED: METHYLERGONOVINE 0.2 MG INJ IM PRN (21:30)
[2017-01-18] MEDS ORDERED: LANOLIN 7 GM TUBE TOP PRN (21:30)
[2017-01-18] MEDS ORDERED: BENZOCAINE 20% 56 ML SPRAY TOP PRN (21:30)
[2017-01-18] MEDS ORDERED: OXYTOCIN 30 UNITS/LR 500 ML IV PRN (21:30)
[2017-01-18] MEDS ORDERED: ACETAMINOPHEN/CODEINE #3 TAB PO PRN ×2 (21:30)
[2017-01-18] MEDS ORDERED: MISOPROSTOL 200 MCG TAB PR PRN (21:30)
[2017-01-18] MEDS ORDERED: CARBOPROST 250 MCG INJ IM PRN (21:30)
[2017-01-18] MEDS: IBUPROFEN 600 MG TAB PO SCH (23:22)
[2017-01-19 05:45] VITALS: BP 101/59; PULSE 57; RESP 18
[2017-01-19] MEDS: IBUPROFEN 600 MG TAB PO SCH ×4 (05:58→23:23)
[2017-01-19 07:35] VITALS: BP 102/69; PULSE 62; RESP 19
[2017-01-19] MEDS: LACTATED RINGER'S 1,000 ML IV* SCH (07:41)
[2017-01-19 08:11] LABS: BASOPHILS % 0.3 % (0.0-2.0); EOSINOPHILS # 0.2 10^3/ul (0.0-0.5); EOSINOPHILS % 1.3 % (0.0-7.0); HEMATOCRIT 29.1 % (37.0-47.0); LYMPHOCYTES % 19.1 % (15.0-51.0); MEAN CORPUSCULAR HEMOGLOBIN 31.8 pg (29.0-33.0); MEAN CORPUSCULAR HGB CONC 34.4 g/dl (32.0-37.0); MEAN CORPUSCULAR VOLUME 92.7 fl (82.0-101.0); MEAN PLATELET VOLUME 11.8 fl (7.4-10.4); MONOCYTE # 1.4 10^3/ul (0.3-0.9); NEUTROPHIL # 10.7 10^3/ul (1.6-7.5); NEUTROPHILS % 67.3 % (39.0-77.0); PLATELET COUNT 200 10^3/UL (140-415); RED BLOOD COUNT 3.14 10^6/ul (4.20-5.40); RED CELL DISTRIBUTION WIDTH 13.6 % (11.5-14.5); WHITE BLOOD COUNT 15.8 10^3/ul (4.8-10.8)
[2017-01-19] MEDS: SENNA/DOCUSATE NA (8.6MG/50MG) TAB PO SCH ×2 (09:53→21:20)
[2017-01-19] MEDS: MAGNESIUM HYDROXIDE 30ML CUP PO SCH ×2 (09:53→21:20)
[2017-01-19 16:00] VITALS: BP 113/58; PULSE 65; RESP 19
--- NOTE | 2017-01-19 16:42 | DS ---
Date/Time of Note Date/Time of Note Home next day DATE: 01/19/17 TIME: 16:41 Obstetrical Discharge Record Final Diagnosis Final Diagnosis: Term delivered Other Final Diagnosis Status post vaginal delivery Vaginal Delivery Obstetrical Delivery: Spontaneous Complications Augmentation: Yes Induction: Yes Condition on Discharge Physical Assessment Last Vitals: See nurse's note Voiding: Yes Bowel Movement: Yes Breast: Soft, non-tender, Filling Fundus: Firm Abdomen and Incision: Soft bowel sounds positive Episiotomy: Not applicable Perineum is clean Calf Tenderness: No Patient Condition: Good WILSON ARMANDO MD Jan 19, 2017 16:42
--- NOTE | 2017-01-19 16:43 | PD.PPDC ---
[employer] Discharge Instruction Provider Information Physician Information 31-year-old female had vaginal delivery Diagnosis Final Diagnosis: Status post vaginal delivery Condition Patient Condition: Good Diet Diet: Resume Regular Diet Activity/Restrictions Activity: Normal Activity May Shower Restrictions: Nothing in the Vagina Return to Work or School: Mar 10, 2017 Follow-up Follow-up with Physician: 4, Week/Weeks (In clinic) Return to clinic for OB Instructions: Breast Tenderness Depression WILSON ARMANDO MD Jan 19, 2017 16:43
[2017-01-19] MEDS ORDERED: IBUP-1542 PO (16:44)
[2017-01-19 20:00] VITALS: BP 111/69; PULSE 69; RESP 20
[2017-01-20 03:50] VITALS: BP 109/68; PULSE 75; RESP 20
[2017-01-20] MEDS: IBUPROFEN 600 MG TAB PO SCH ×2 (05:28→11:41)
[2017-01-20 07:30] VITALS: BP 109/66; PULSE 62; RESP 18
[2017-01-20 08:37] LABS: BASOPHIL # 0.1 10^3/ul (0.0-0.1); BASOPHILS % 0.5 % (0.0-2.0); EOSINOPHILS # 0.2 10^3/ul (0.0-0.5); EOSINOPHILS % 2.2 % (0.0-7.0); HEMATOCRIT 27.7 % (37.0-47.0); HEMOGLOBIN 9.5 g/dl (12.0-16.0); LYMPHOCYTES # 2.9 10^3/ul (0.8-2.9); MEAN CORPUSCULAR HEMOGLOBIN 32.4 pg (29.0-33.0); MEAN CORPUSCULAR HGB CONC 34.3 g/dl (32.0-37.0); MEAN CORPUSCULAR VOLUME 94.5 fl (82.0-101.0); MEAN PLATELET VOLUME 11.7 fl (7.4-10.4); MONOCYTE # 0.8 10^3/ul (0.3-0.9); MONOCYTES % 7.7 % (0.0-11.0); NEUTROPHIL # 5.9 10^3/ul (1.6-7.5); NEUTROPHILS % 57.5 % (39.0-77.0); PLATELET COUNT 198 10^3/UL (140-415); RED BLOOD COUNT 2.93 10^6/ul (4.20-5.40); RED CELL DISTRIBUTION WIDTH 13.9 % (11.5-14.5); WHITE BLOOD COUNT 10.2 10^3/ul (4.8-10.8)
[2017-01-20] MEDS: MAGNESIUM HYDROXIDE 30ML CUP PO SCH (08:52)
[2017-01-20] MEDS: SENNA/DOCUSATE NA (8.6MG/50MG) TAB PO SCH (08:52)
[2017-01-20] MEDS ORDERED: MEASLES,MUMPS,RUBELLA VACCINE INJ SC* ONE (09:00)
[2017-01-20] MEDS ORDERED: VARICELLA VACCINE LIVE/PF 1,350 UNIT/0.5 ML ML SC* ONE (09:00)
[2017-01-20] MEDS ORDERED: DIPHTH/TET/ACEL PERTUSS (ADULT) 0.5 ML VIAL IM* ONE (09:00)
== END 2017-01-20 12:05 | disposition home or self-care (01) | DRG 775 ==
LOC: L-D 08:56 → PP1 01-18 20:55
PROVIDERS: ADMIT Obstetrics & Gynecology; ATTEND Obstetrics & Gynecology
PROC: 10E0XZZ Delivery of Products of Conception, External Approach (ICD-10-PCS; principal; 2017-01-18)
PROC: 3E033VJ Introduction of Other Hormone into Peripheral Vein, Percutaneous Approach (ICD-10-PCS; 2017-01-18)
DX: O48.0 Post-term pregnancy (principal); Z37.0 Single live birth; Z3A.40 40 weeks gestation of pregnancy
CPT/HCPCS: 76815; 85025; 85610; 85730; 86592; 86850; 86900; 86901; 86920; 87340; 90715; 90716; 99464; J0290; J0595; J0690; J2590; J7120